=== PATIENT | male | born 1990 | race Caucasian/White ===

== ENCOUNTER 2023-05-18 16:45 | Emergency (ER) | payer OTHER, SELFPAY ==
[2023-05-18 16:48] VITALS: BP 189/105; PULSE 94; RESP 18; TEMP 37.3; O2SAT 99
--- NOTE | 2023-05-18 17:00 | DI.CT_ITS ---
Exam(s) CT ABDOMEN PELVIS W EXAM: CT ABDOMEN PELVIS W CLINICAL HISTORY: left upper abd wall swelling for months. TECHNIQUE: Imaging Protocol: Axial computed tomography images with coronal and sagittal reformatted images were created and reviewed CONTRAST MATERIAL: Intravenous: Omnipaque-350 100cc Oral: None COMPARISON: No exams were available for comparison FINDINGS: VISUALIZED LUNG BASES: No nodules nor pleural effusions evident. ABDOMEN: There is no ascites. LIVER: There are no focal hepatic lesions evident. No dilated intrahepatic ducts. GALLBLADDER/BILIARY: No obvious gallbladder pathology. CBD is not dilated. PANCREAS: No evidence of pancreatic mass nor dilatation of the pancreatic duct. SPLEEN: Spleen is not enlarged. No obvious intrasplenic lesions. Splenic and portal veins are paten t. ADRENALS: There are no significant adrenal masses. KIDNEYS:No cysts evident. No solid renal masses. No calculi nor hydronephrosis.. ABDOMINAL AORTA: Abdominal aorta is not enlarged. LYMPH NODES:There is no retroperitoneal nor paraaortic adenopathy. ABDOMINAL WALL: No evidence of significant anterior abdominal wall nor inguinal hernia. GI: There is slight prominence diameter of most proximal jejunal loops which measures 3.5 cm diameter but there is no obvious true bowel obstruction. No obvious intussusception. No mesenteric swirl si gn. Small mesenteric lymph nodes are noted which are upper normal size. PELVIS: GI: No evidence of appendicitis.No evidence of sigmoid diverticulitis. LYMPH NODES: There is no intrapelvic nor inguinal adenopathy. REPRODUCTIVE: Prostate gland not enlarged. Seminal vesicles unremarkable. URINARY BLADDER: No calculi nor obvious masses evident OSSEOUS: No fractures and no significant osseous lesions. IMPRESSION: 1. There is slight prominent diameter of the most proximal jejunal loop distal to the ligament of [place] acacia but no evidence of high-grade obstruction nor pneumatosis. No mesenteric swirl sign. No obvious i ntussusception. 2. There are a few diverticuli in left side of the colon but no evidence of acute diverticulitis. Als o no appendicitis. Report called by myself to ER physician. RADIATION DOSE DELIVERED: Total DLP DATA REPOSITORY: All CT scans at this facility are submitted to the National Radiology Data Registry (NRDR) Dose Index Registry (DIR) with the [employer] ([employer]). RADIATION OPTIMIZATION: All CT scans at this facility use at least one of these dose optimization te chniques: automated exposure control; mA and/or kV adjustment per patient size (includes targeted exa ms where dose is matched to clinical indication); or iterative reconstruction.
[2023-05-18 17:15] VITALS: BP 189/105; PULSE 94; RESP 18; TEMP 37.3; O2SAT 99
[2023-05-18 17:21] LABS: Abs Immature Grans 0.02 10^3/uL (0.0-0.06); Absolute Basophil Count 0.02 10^3/uL (0.0-0.2); Absolute Lymphocyte Count 2.16 10^3/uL (1.2-3.4); Absolute Monocyte Count 0.72 10^3/uL (0.1-0.8); Absolute Neutrophil Count 6.09 10^3/uL (1.2-6.7); Basophils % 0.2; Eosinophils % 1.1; HCT 45.3 % (40.0-50.0); HGB 15.2 g/dL (13.5-17.5); Immature Grans % 0.2; Lymphocytes % 23.7; MCH 29.9 pg (27.0-33.0); MCHC 33.6 % (32.0-36.0); MCV 89 fL (80-95); MPV 9.2 fL (8.0-11.0); Monocytes % 7.9; Neutrophils % 66.9; Platelet Count 291 10^3/uL (130-400); RBC 5.09 10^6/uL (4.36-5.78); RDW 12.5 % (11.8-14.1); RDW-SD 41.5 fL; WBC 9.11 10^3/uL (4.4-10.8)
[2023-05-18 17:34] LABS: ALT 56 U/L (16-63); AST 28 U/L (15-37); Albumin 4.3 g/dL (3.4-5.0); Alkaline Phosphatase 112 U/L (46-116); Anion Gap 11.4 mmol/L (3-11); BUN 17 mg/dL (7-18); Bilirubin, Total 0.4 mg/dL (0.2-1.0); CO2 26.6 mmol/L (21.0-32.0); CREATININE 0.9 mg/dL (0.70-1.30); Calcium 9.4 mg/dL (8.5-10.1); Chloride 102 mmol/L (98-107); Estimated GFR 115.65 (mL/min/1.73m2); Glucose 99 mg/dL (74-106); Sodium 140 mmol/L (136-145); Total Protein 8.5 g/dL (6.4-8.2)
--- NOTE | 2023-05-18 17:45 | ED.GENADUL_ITS ---
Discharge Plan Disposition Patient Disposition: Home Condition: Improving Discharge Details Chief Complaint: Abd Prob Clinical Impression: Abdominal pain Primary Care Provider: Eddy Sanderson ED Provider: Rickie Campuzano Home Meds and New Rx's Prescriptions: No Action No Known Home Meds Discharge Instructions Instructions: Abdominal Pain (ED) HPI General Date/Time Provider Initiated Documentation: 05/18/23 16:51 . HPI Narrative: 32-year-old male history of obesity, presents with swelling to left upper abdominal wall and has noted more prominent abdominal veins, patient endorses weight gain. Denies abdominal pain nausea vomiting change in bowel habits or change in eating habits. Related Data Home Medications Medication Instructions Recorded Confirmed Unknown [No Known Home Meds] 05/18/23 05/18/23 Allergies Allergy/AdvReac Type Severity Reaction Status Date / Time No Known Allergies Allergy Verified 05/18/23 17:18 General Stated Complaint: Abd Prob KEN: 3 Review of Systems Narrative: Review of Systems Constitutional: negative Eyes: negative ENT: negative Cardiovascular: negative Respiratory: negative Gastrointestinal: Abdominal wall swelling : negative Musculoskeletal: negative Skin: negative Neurologic: negative Psych: negative Exam Narrative Exam Narrative: Physical Examination General: alert, awake, cooperative, resting comfortably, no acute distress HEENT: normocephalic, atraumatic; PERRL, EOM intact, conjunctiva normal; no nasal discharge; moist mucous membranes, oral and pharyngeal mucosa normal, tolerating secretions Neck: supple, trachea midline; full ROM Chest: normal to inspection Respiratory: normal respiratory effort, speaking in full sentences, clear to a uscultation, no wheezing, rales or rhonchi Cardiac: regular rate, regular rhythm, S1S2 intact, no murmurs rubs or gallops GI: abdomen soft, non-tender, non-distended; no palpable mass or hepatosplen omegaly; pronounced area of soft tissue left upper abdomen soft without induration crepitus erythema fluctuance or palpable mass Skin: no lesions, rashes or trauma appreciated Neuro: AAOx3, normal speech, moving all extremities Psych: Appropriate mood and affect Course Vital Signs Vital signs: Vital Signs Temperature 37.3 C 05/18/23 16:48 Pulse 94 H 05/18/23 16:48 Respiratory Rate 18 05/18/23 16:48 Blood Pressure 189/105 H 05/18/23 16:48 Pulse Oximetry 99 05/18/23 16:48 Temperature 37.3 C 05/18/23 17:15 Temperature Source Skin 05/18/23 17:15 Pulse 94 H 05/18/23 17:15 Respiratory Rate 18 05/18/23 17:15 Respiratory Effort Normal 05/18/23 16:52 Blood Pressure 189/105 H 05/18/23 17:15 Blood Pressure Position Sitting 05/18/23 17:15 Pulse Oximetry 99 05/18/23 17:15 Oxygen Delivery Method Room Air 05/18/23 17:15 Oxygen Flow Rate 0 05/18/23 17:15 Pain Level 0 05/18/23 17:15 Lab/Test Results Lab/Test Results: Laboratory Tests Range/Units 05/18/23 17:10 WBC (4.4-10.8) 10^3/uL 9.11 RBC (4.36-5.78) 10^6/uL 5.09 Hgb (13.5-17.5) g/dL 15.2 Hct (40.0-50.0) % 45.3 MCV (80-95) fL 89 MCH (27.0-33.0) pg 29.9 MCHC (32.0-36.0) % 33.6 RDW (11.8-14.1) % 12.5 Plt Count (130-400) 10^3/uL 291 MPV (8.0-11.0) fL 9.2 Immature Gran % 0.2 Neutrophils % 66.9 Lymphocytes % 23.7 Monocytes % 7.9 Eosinophils % 1.1 Basophils % 0.2 Nucleated RBC % (0.0-0.3) % 0.0 Absolute Neutrophils (1.2-6.7) 10^3/uL 6.09 Absolute Lymphocytes (1.2-3.4) 10^3/uL 2.16 Absolute Monocytes (0.1-0.8) 10^3/uL 0.72 Absolute Eosinophils (0.0-0.7) 10^3/uL 0.10 Absolute Basophils (0.0-0.2) 10^3/uL 0.02 Sodium (136-145) mmol/L 140 Potassium (3.5-5.1) mmol/L 4.0 Chloride (98-107) mmol/L 102 Carbon Dioxide (21.0-32.0) mmol/L 26.6 Anion Gap (3-11) mmol/L 11.4 H BUN (7-18) mg/dL 17 Creatinine (0.70-1.30) mg/dL 0.9 Est GFR (CKD-EPI 2020) (mL/min/1.73m2) 115.65 Glucose (74-106) mg/dL 99 Calcium (8.5-10.1) mg/dL 9.4 Total Bilirubin (0.2-1.0) mg/dL 0.4 AST (15-37) U/L 28 ALT (16-63) U/L 56 Alkaline Phosphatase (46-116) U/L 112 Total Protein (6.4-8.2) g/dL 8.5 H Albumin (3.4-5.0) g/dL 4.3 Medical Decision Making 32-year-old male history of obesity presents with 4 months of a progression of swelling of his left upper abdominal wall, soft to the touch nonpainful, nonind urated nonerythematous, nonfluctuant, patient afebrile nontoxic no acute distress nonperitoneal. Consider normal fat distribution versus abdominal wall hernia muscles consider lipoma less likely abdominal wall hematoma low suspicion for malignancy or abscess. Screening labs CT abdomen pelvis with IV contrast. Close reassessment likely home with follow-up 19: 37 resting comfortably no acute distress. CT unremarkable labs unremarkable. Patient to follow with primary care physician Quality:SDOH Health Related Social Needs: No Data to Display PFSH All Active Problems (Updated 05/18/23 @ 19:37 by Rickie Campuzano MD) Abdominal pain (Acute) Social History Smoking/Tobacco Use Status: Current every day Tobacco Type: pipe Smoking risk assessment performed?: Yes Alcohol Intake: current Alcohol Intake frequency: a few times a week Substance use type: marijuana
[2023-05-18] MEDS: Normal Saline - Diluent 50 ML VIAL IJ (17:57)
[2023-05-18] MEDS: Omnipaque 350 MG/ML 100 ML BTL IJ (17:58)
[2023-05-18 19:24] VITALS: BP 153/88; RESP 18; O2SAT 98
== END 2023-05-18 19:57 | disposition home or self-care (01) ==
PROVIDERS: Emergency Provider Emergency Medicine; PCP Internal Medicine
DX: R19.04 Left lower quadrant abdominal swelling, mass and lump (principal); R10.12 Left upper quadrant pain
CPT/HCPCS: 36415; 80053; 99285; 74177; 85025; 99283; J3490